=== PATIENT | male | born 1990 | race Two or more races ===

== ENCOUNTER 2016-12-19 02:05 | Emergency (ER) | payer SELFPAY ==
[2016-12-19] MEDS ORDERED: BAND-AID NON-S1 EAC1 (02:20)
== END 2016-12-19 03:00 ==
LOC: EDMED 02:05
PROC: 0HQEXZZ Repair Left Lower Arm Skin, External Approach (ICD-10-PCS; principal; 2016-12-19)
DX: S51.812A Laceration without foreign body of left forearm, initial encounter (principal); S10.91XA Abrasion of unspecified part of neck, initial encounter; S20.312A Abrasion of left front wall of thorax, initial encounter; S20.311A Abrasion of right front wall of thorax, initial encounter; Z23 Encounter for immunization; X99.1XXA Assault by knife, initial encounter; Y92.019 Unspecified place in single-family (private) house as the place of occurrence of the external cause